=== PATIENT | male | born 1980 | race Two or more races ===

== ENCOUNTER 2018-04-17 16:44 | Emergency (ER) | payer SELFPAY ==
[~2018-04-17] VITALS: Ht 182.9 cm; Wt 74.8 kg
[2018-04-17] MEDS ORDERED: Tetanus/Diptheria/Pertussis Vaccine 0.5ml Syr IM ONE (17:00)
[2018-04-17] MEDS ORDERED: Acetaminophen 500mg (ES) tab ORAL ONE (17:00)
[2018-04-17 17:56] VITALS: BP 137/87
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
[2018-04-17] MEDS ORDERED: IBUPROFEN600 MG ORAL (18:03)
[2018-04-17] MEDS ORDERED: Bacitracin Oint UD TOPIC ONE (18:08)
[2018-04-17 18:36] VITALS: BP 137/87
--- NOTE | 2018-04-18 09:42 | Diagnostic Imaging Report ---
Indication: Chest pain Technique: Continuous helical transaxial imaging of the chest was obtained from the thoracic inlet to the upper abdomen. No intravenous contrast was administered. Coronal 2-D reformats were also obtained. Total Dose length Product (DLP): [address] Dose Index Volume (CTDIvol): 0.15, 17.67 mGy Comparison: none Findings: The lungs are clear. No pleural or pericardial effusion, adenopathy, infiltrate, interstitial disease identified. Osseous and soft tissue structures are unremarkable. Visualized upper abdomen shows a contracted gallbladder and is otherwise unremarkable. IMPRESSION: Negative noncontrast CT chest The CT scanner at [facility] is accredited by the [employer] and the scans are performed using dose optimization techniques as appropriate to a performed exam including Automatic Exposure control.
== END 2018-04-17 18:39 ==
LOC: EDBD 16:44 → EMR 18:24
DX: S00.81XA Abrasion of other part of head, initial encounter (principal); S60.512A Abrasion of left hand, initial encounter; S60.413A Abrasion of left middle finger, initial encounter; S20.219A Contusion of unspecified front wall of thorax, initial encounter; S20.229A Contusion of unspecified back wall of thorax, initial encounter; Y35.893A Legal intervention involving other specified means, suspect injured, initial encounter; Y92.89 Other specified places as the place of occurrence of the external cause; Z23 Encounter for immunization
CPT/HCPCS: 71250; 90471; 90715; 99284